=== PATIENT | male | born 1960 | race Caucasian/White ===

== ENCOUNTER 2020-05-13 02:16 | Inpatient (IN) ==
[2020-05-13] MEDS ORDERED: MIDAZOLAM 100 MG in SODIUM CHLORIDE 0.9% 80 ML IV PRN (04:01)
[2020-05-13 04:07] LABS: ABG Base Excess -2.6 MMOL/L (-2.5-2.5); ABG HCO3 22.2 MMOL/L (20-26); ABG Oxygen Saturation 97.6 % (95-100); ABG PH 7.337 (7.35-7.45); ABG TCO2 21.8 MMOL/L (23-27)
[2020-05-13] MEDS ORDERED: MIDAZOLAM 10 MG/2 ML VIAL ONE (04:10)
[2020-05-13] MEDS ORDERED: MIDAZOLAM 10 MG/2 ML VIAL IV ONE (04:10)
[2020-05-13] MEDS: MIDAZOLAM 100 MG in SODIUM CHLORIDE 0.9% 80 ML IV PRN ×2 (04:30→19:29)
[2020-05-13] MEDS ORDERED: NICOTINE 21 MG/24 HR PATCH TRANSDERM PRN (04:36)
[2020-05-13] MEDS ORDERED: ALBUTEROL 2.5 MG/3 ML NEB RESP TX PRN (04:36)
[2020-05-13] MEDS ORDERED: ONDANSETRON 4 MG/2 ML VIAL IV PRN (04:36)
[2020-05-13] MEDS ORDERED: MORPHINE 4 MG/1 ML VIAL IV PRN (04:36)
[2020-05-13 04:44] LABS: Basophils % 0.1 % (0.0-0.8); Eosinophils % 0.1 % (0.00-10.9); Hematocrit 23.5 VOL% (42.0-52.0); Hemoglobin 7.4 GM/DL (14.0-18.0); Immature Granulocytes % 1.9 %; Immature Granulocytes Absolute 0.31 #; Lymphocytes # 0.9 10*3/uL (1.4-4.0); Lymphocytes % 5.8 % (21.2-54.2); Mean Corpuscular HGB Conc 31.5 GM/DL (32-36); Mean Corpuscular Volume 100.9 FL (87-102); Mean Platelet Volume 10.5 FL (9.6-12.0); Monocytes % 3.9 % (1.7-12.7); Neutrophils % 88.2 % (38.7-73.9); Platelet Count 302 T/CUMM (130-400); Red Blood Count 2.33 MC/CUMM (3.8-5.5); Red Cell Distribution Width 13.7 % (9.3-17.3); White Blood Count 15.9 T/CUMM (4-12)
[2020-05-13 04:56] LABS: INR 1.1; PT Patient Result 11.8 SECS (9.8-11.9); Partial Thromboplastin Time 27.5 SECS (23.9-33.8)
[2020-05-13] MEDS ORDERED: SODIUM CHLORIDE 0.9% 1,000 ML IV PRN (04:58)
[2020-05-13 05:11] LABS: Alanine Aminotransferase 21 U/L (16-61); Albumin 2.1 G/DL (3.4-5.0); Alkaline Phosphatase 133 U/L (45-117); Amylase 98 U/L (25-115); Aspartate Amino Transferase 30 U/L (0-37); Bilirubin,Total < 0.39 MG/DL (0.2-1.0); Blood Urea Nitrogen 28 MG/DL (7-18); Calcium 6.9 MG/DL (8.5-10.1); Carbon Dioxide 23 MMOL/L (21-32); Estimated Glom Filtration Rate 22 ML/MIN; Glucose 124 MG/DL (74-106); Osmolality,Calculated 283.5 MOS/KG (273-304); Potassium 3.8 MMOL/L (3.5-5.1); Sodium 139 MMOL/L (136-145); Total Protein 5.5 G/DL (6.4-8.3)
[2020-05-13] MEDS: fentaNYL INJ 1,250 MCG in SODIUM CHLORIDE 0.9% 225 ML IV PRN (05:15)
[2020-05-13 05:27] LABS: Troponin I 0.233 NG/ML (0.00-0.045)
[2020-05-13] MEDS ORDERED: DEXTROSE 50% 25 GM/50 ML VIAL IV PRN (05:43)
[2020-05-13] MEDS ORDERED: GLUCAGON 1 MG VIAL IM PRN (05:43)
[2020-05-13] MEDS ORDERED: LORazepam 2 MG/1 ML VIAL ONE ×2 (06:41→17:10)
[2020-05-13] MEDS ORDERED: LORazepam 2 MG/1 ML VIAL IV ONE ×2 (06:43→07:47)
[2020-05-13] MEDS ORDERED: PHENobarbital 130 MG/1 ML VIAL IV ONE (07:51)
[2020-05-13] MEDS ORDERED: FOSPHENYTOIN 1,000 MG.PE in SODIUM CHLORIDE 0.9% 250 ML IV ONE (08:00)
[2020-05-13 08:59] LABS: Bilirubin,Urine Negative (Negative); Blood, Urine Negative (Negative); Glucose,Urine (UA) Negative (Negative); Ketones,Urine Negative (Negative); Mucus,Urine Occasional /LPF (Occasional); Nitrite,Urine Negative (Negative); Protein,Urine >=500 MG/DL; RBC,Urine 5 /HPF (0-4); Urine Appearance CLEAR (Clear); Urine Color Yellow (Yellow); Urine Specific Gravity 1.034 (1.001-1.035); Urine Urobilinogen < 2.0 EU/DL (0.2-1.0); WBC,Urine 2 /HPF (0-6)
[2020-05-13] MEDS: PANTOPRAZOLE 40 MG VIAL IV SCH (09:09)
[2020-05-13] MEDS: cefTRIAXone 1,000 MG in SYRINGE 1 EACH IV SCH (10:59)
[2020-05-13] MEDS: AZITHROMYCIN INJ 250 MG in SODIUM CHLORIDE 0.9% 250 ML IV SCH (13:30)
[2020-05-13] MEDS: PHENobarbital 130 MG/1 ML VIAL IV SCH (16:50)
[2020-05-13] MEDS: LORazepam 2 MG/1 ML VIAL IV PRN (17:20)
[2020-05-13 17:32] LABS: Hemoglobin 7.6 GM/DL (14.0-18.0)
[2020-05-13] MEDS: DEXAMETHASONE 4 MG/1 ML VIAL IV SCH (20:05)
[2020-05-13] MEDS: LACOSAMIDE INJ 200 MG in SODIUM CHLORIDE 0.9% 50 ML IV SCH (20:05)
[2020-05-13] MEDS: ENOXAPARIN 30 MG/0.3 ML SYRINGE SUBCUT SCH (20:17)
[2020-05-13 23:28] LABS: Hematocrit 28.3 VOL% (42.0-52.0)
[2020-05-13 23:31] LABS: Hemoglobin 8.8 GM/DL (14.0-18.0)
[2020-05-14] MEDS: LORazepam 2 MG/1 ML VIAL IV PRN (00:15)
[2020-05-14] MEDS: PHENobarbital 130 MG/1 ML VIAL IV SCH ×3 (00:24→17:30)
[2020-05-14] MEDS: DEXAMETHASONE 4 MG/1 ML VIAL IV SCH ×4 (02:45→19:30)
[2020-05-14 03:50] LABS: ABG Base Excess -3.6 MMOL/L (-2.5-2.5); ABG HCO3 21.5 MMOL/L (20-26); ABG Oxygen Saturation 99.9 % (95-100); ABG PCO2 31.4 MM HG (35-48); ABG PH 7.417 (7.35-7.45); ABG TCO2 18.5 MMOL/L (23-27)
[2020-05-14 04:11] LABS: Basophils % 0.1 % (0.0-0.8); Hematocrit 28.8 VOL% (42.0-52.0); Immature Granulocytes % 0.6 %; Immature Granulocytes Absolute 0.06 #; Lymphocytes % 9.6 % (21.2-54.2); Mean Corpuscular Volume 94.4 FL (87-102); Mean Platelet Volume 11.1 FL (9.6-12.0); Monocytes % 3.2 % (1.7-12.7); Neutrophils % 86.5 % (38.7-73.9); Platelet Count 277 T/CUMM (130-400); Red Cell Distribution Width 16.7 % (9.3-17.3); White Blood Count 9.9 T/CUMM (4-12)
[2020-05-14 04:21] LABS: Hemoglobin 9.5 GM/DL (14.0-18.0); Red Blood Count 3.05 MC/CUMM (3.8-5.5)
[2020-05-14 04:34] LABS: Osmolality,Calculated 288.3 MOS/KG (273-304); Potassium 3.8 MMOL/L (3.5-5.1)
[2020-05-14] MEDS: fentaNYL INJ 1,250 MCG in SODIUM CHLORIDE 0.9% 225 ML IV PRN (07:00)
[2020-05-14] MEDS: MIDAZOLAM 100 MG in SODIUM CHLORIDE 0.9% 80 ML IV PRN (07:32)
[2020-05-14] MEDS: PANTOPRAZOLE 40 MG VIAL IV SCH (08:16)
[2020-05-14] MEDS: LACOSAMIDE INJ 200 MG in SODIUM CHLORIDE 0.9% 50 ML IV SCH ×2 (08:59→19:48)
[2020-05-14] MEDS ORDERED: SODIUM BICARBONATE 50 MEQ/50 ML VIAL IV ONE (09:21)
[2020-05-14] MEDS: cefTRIAXone 1,000 MG in SYRINGE 1 EACH IV SCH (11:24)
[2020-05-14] MEDS: AZITHROMYCIN INJ 250 MG in SODIUM CHLORIDE 0.9% 250 ML IV SCH (11:33)
[2020-05-14] MEDS: ENOXAPARIN 30 MG/0.3 ML SYRINGE SUBCUT SCH (21:37)
[2020-05-15] MEDS: PHENobarbital 130 MG/1 ML VIAL IV SCH ×3 (00:16→17:36)
[2020-05-15] MEDS: DEXAMETHASONE 4 MG/1 ML VIAL IV SCH ×3 (02:15→15:52)
[2020-05-15 04:33] LABS: ABG Base Excess -7.2 MMOL/L (-2.5-2.5); ABG HCO3 17.5 MMOL/L (20-26); ABG Oxygen Saturation 98.6 % (95-100); ABG PCO2 32.2 MM HG (35-48); ABG PH 7.353 (7.35-7.45); ABG PO2 168.5 MM HG (80-95); ABG TCO2 18.5 MMOL/L (23-27)
[2020-05-15 04:41] LABS: Basophils % 0.1 % (0.0-0.8); Hematocrit 29.9 VOL% (42.0-52.0); Hemoglobin 9.4 GM/DL (14.0-18.0); Immature Granulocytes % 0.6 %; Immature Granulocytes Absolute 0.06 #; Lymphocytes # 0.7 10*3/uL (1.4-4.0); Lymphocytes % 6.4 % (21.2-54.2); Mean Corpuscular HGB Conc 31.4 GM/DL (32-36); Mean Corpuscular Volume 96.8 FL (87-102); Mean Platelet Volume 10.9 FL (9.6-12.0); Monocytes % 2.2 % (1.7-12.7); Neutrophils % 90.7 % (38.7-73.9); Platelet Count 258 T/CUMM (130-400); Red Blood Count 3.09 MC/CUMM (3.8-5.5); Red Cell Distribution Width 16.6 % (9.3-17.3); White Blood Count 10.2 T/CUMM (4-12)
[2020-05-15 04:58] LABS: Calcium 7.7 MG/DL (8.5-10.1); Osmolality,Calculated 289.5 MOS/KG (273-304); Potassium 4.1 MMOL/L (3.5-5.1)
[2020-05-15 05:06] LABS: Lymphocytes 4 % (20-55); Platelet Estimate Normal; Segmented Neutrophils 93 % (50-85); Total Cells Counted 100
[2020-05-15 05:07] LABS: Hypochromasia Slight
[2020-05-15] MEDS: PANTOPRAZOLE 40 MG VIAL IV SCH (09:49)
[2020-05-15] MEDS: LACOSAMIDE INJ 200 MG in SODIUM CHLORIDE 0.9% 50 ML IV SCH (09:49)
[2020-05-15] MEDS: ASPIRIN CHEW 81 MG TABLET PO SCH (10:10)
[2020-05-15] MEDS: cefTRIAXone 1,000 MG in SYRINGE 1 EACH IV SCH (10:34)
[2020-05-15] MEDS: AZITHROMYCIN INJ 250 MG in SODIUM CHLORIDE 0.9% 250 ML IV SCH (12:15)
[2020-05-15] MEDS: HEPARIN 5,000 UNIT/1 ML VIAL SUBCUT SCH (13:12)
[2020-05-15] MEDS ORDERED: HEPARIN 10,000 UNIT/10 ML VIAL IV SCH (16:45)
[2020-05-15] MEDS ORDERED: PHENYTOIN INJ 1,000 MG in SODIUM CHLORIDE 0.9% 100 ML IV ONE (17:18)
[2020-05-15] MEDS: MIDAZOLAM 100 MG in SODIUM CHLORIDE 0.9% 80 ML IV PRN (19:31)
[2020-05-16] MEDS ORDERED: VALPROIC ACID INJ 500 MG in SODIUM CHLORIDE 0.9% 100 ML IV SCH
[2020-05-16] MEDS: HEPARIN 5,000 UNIT/1 ML VIAL SUBCUT SCH ×2 (00:25→14:32)
[2020-05-16] MEDS: DEXAMETHASONE 4 MG/1 ML VIAL IV SCH ×3 (00:25→21:59)
[2020-05-16] MEDS: PHENYTOIN 100 MG/2 ML VIAL IV SCH ×3 (00:28→18:30)
[2020-05-16] MEDS: PHENobarbital 130 MG/1 ML VIAL IV SCH ×4 (01:14→18:30)
[2020-05-16] MEDS: fentaNYL INJ 1,250 MCG in SODIUM CHLORIDE 0.9% 225 ML IV PRN (02:21)
[2020-05-16 04:33] LABS: ABG Base Excess 0.3 MMOL/L (-2.5-2.5); ABG HCO3 24.7 MMOL/L (20-26); ABG Oxygen Saturation 99.4 % (95-100); ABG PCO2 36.9 MM HG (35-48); ABG PH 7.428 (7.35-7.45); ABG TCO2 22.2 MMOL/L (23-27)
[2020-05-16 04:40] LABS: Basophils % 0.1 % (0.0-0.8); Hematocrit 28.5 VOL% (42.0-52.0); Hemoglobin 9.6 GM/DL (14.0-18.0); Immature Granulocytes % 0.5 %; Immature Granulocytes Absolute 0.04 #; Lymphocytes # 0.7 10*3/uL (1.4-4.0); Lymphocytes % 8.1 % (21.2-54.2); Mean Corpuscular HGB Conc 33.7 GM/DL (32-36); Mean Corpuscular Volume 93.1 FL (87-102); Mean Platelet Volume 11.1 FL (9.6-12.0); Monocytes % 4.5 % (1.7-12.7); Neutrophils % 86.8 % (38.7-73.9); Platelet Count 246 T/CUMM (130-400); Red Blood Count 3.06 MC/CUMM (3.8-5.5); Red Cell Distribution Width 16.1 % (9.3-17.3); White Blood Count 8.9 T/CUMM (4-12)
[2020-05-16 04:58] LABS: Calcium 7.5 MG/DL (8.5-10.1); Osmolality,Calculated 281.8 MOS/KG (273-304); Potassium 3.7 MMOL/L (3.5-5.1)
[2020-05-16] MEDS: ASPIRIN CHEW 81 MG TABLET PO SCH (09:05)
[2020-05-16] MEDS: PANTOPRAZOLE 40 MG VIAL IV SCH (09:05)
[2020-05-16] MEDS: cefTRIAXone 1,000 MG in SYRINGE 1 EACH IV SCH (09:30)
[2020-05-16] MEDS: MIDAZOLAM 100 MG in SODIUM CHLORIDE 0.9% 80 ML IV PRN (14:13)
[2020-05-16] MEDS: AZITHROMYCIN INJ 250 MG in SODIUM CHLORIDE 0.9% 250 ML IV SCH (14:32)
[2020-05-16] MEDS ORDERED: LORazepam 2 MG/1 ML VIAL IV ONE (15:51)
[2020-05-16] MEDS ORDERED: VALPROIC ACID INJ 1,000 MG in SODIUM CHLORIDE 0.9% 100 ML IV ONE (16:00)
[2020-05-17] MEDS: hydrALAZINE 20 MG/1 ML VIAL IV PRN ×3 (00:08→12:52)
[2020-05-17] MEDS: PHENYTOIN 100 MG/2 ML VIAL IV SCH ×3 (00:12→18:00)
[2020-05-17] MEDS: HEPARIN 5,000 UNIT/1 ML VIAL SUBCUT SCH ×2 (00:14→12:52)
[2020-05-17] MEDS: VALPROIC ACID INJ 500 MG in SODIUM CHLORIDE 0.9% 100 ML IV SCH ×2 (00:22→10:00)
[2020-05-17] MEDS: PHENobarbital 130 MG/1 ML VIAL IV SCH ×3 (00:30→18:00)
[2020-05-17 05:10] LABS: Basophils % 0.1 % (0.0-0.8); Eosinophils % 0.1 % (0.00-10.9); Hematocrit 31.4 VOL% (42.0-52.0); Hemoglobin 10.3 GM/DL (14.0-18.0); Immature Granulocytes % 0.5 %; Immature Granulocytes Absolute 0.05 #; Lymphocytes # 1.5 10*3/uL (1.4-4.0); Lymphocytes % 14.7 % (21.2-54.2); Mean Corpuscular HGB Conc 32.8 GM/DL (32-36); Mean Corpuscular Volume 95.2 FL (87-102); Mean Platelet Volume 10.7 FL (9.6-12.0); Monocytes % 5.3 % (1.7-12.7); Neutrophils % 79.3 % (38.7-73.9); Platelet Count 245 T/CUMM (130-400); Red Cell Distribution Width 15.9 % (9.3-17.3); White Blood Count 10.1 T/CUMM (4-12)
[2020-05-17 05:11] LABS: ABG Base Excess -1.8 MMOL/L (-2.5-2.5); ABG HCO3 22.4 MMOL/L (20-26); ABG Oxygen Saturation 97.5 % (95-100); ABG PCO2 36.1 MM HG (35-48); ABG PH 7.411 (7.35-7.45); ABG PO2 104.6 MM HG (80-95); ABG TCO2 23.5 MMOL/L (23-27)
[2020-05-17 05:36] LABS: Calcium 7.3 MG/DL (8.5-10.1); Osmolality,Calculated 287.7 MOS/KG (273-304); Potassium 3.9 MMOL/L (3.5-5.1)
[2020-05-17] MEDS: LORazepam 2 MG/1 ML VIAL IV PRN ×4 (06:18→10:54)
[2020-05-17] MEDS: MIDAZOLAM 100 MG in SODIUM CHLORIDE 0.9% 80 ML IV PRN ×2 (06:56→23:10)
[2020-05-17] MEDS: ASPIRIN CHEW 81 MG TABLET PO SCH (09:00)
[2020-05-17] MEDS: DEXAMETHASONE 4 MG/1 ML VIAL IV SCH ×2 (09:00→20:58)
[2020-05-17] MEDS: PANTOPRAZOLE 40 MG VIAL IV SCH (09:00)
[2020-05-17] MEDS: cefTRIAXone 1,000 MG in SYRINGE 1 EACH IV SCH (09:55)
[2020-05-17] MEDS: AZITHROMYCIN INJ 250 MG in SODIUM CHLORIDE 0.9% 250 ML IV SCH (11:57)
[2020-05-17] MEDS: VALPROIC ACID INJ 750 MG in SODIUM CHLORIDE 0.9% 100 ML IV SCH ×2 (12:18→21:08)
[2020-05-17] MEDS ORDERED: KETAMINE 500 MG/10 ML VIAL IV ONE ×2 (13:05→14:00)
[2020-05-17] MEDS: SODIUM CHLORIDE 0.9% IV SCH ×2 (14:02→22:52)
[2020-05-17] MEDS: KETAMINE IV SCH ×2 (14:02→22:52)
[2020-05-18] MEDS: PHENobarbital 130 MG/1 ML VIAL IV SCH ×3 (00:48→17:33)
[2020-05-18] MEDS: HEPARIN 5,000 UNIT/1 ML VIAL SUBCUT SCH ×2 (00:48→11:15)
[2020-05-18] MEDS: PHENYTOIN 100 MG/2 ML VIAL IV SCH ×3 (00:48→17:32)
[2020-05-18] MEDS ORDERED: NOREPINEPHRINE 4 MG/4 ML VIAL IV ONE (01:29)
[2020-05-18] MEDS: NOREPINEPHRINE 8 MG in SODIUM CHLORIDE 0.9% 242 ML IV PRN (01:40)
[2020-05-18 04:28] LABS: ABG Base Excess -0.7 MMOL/L (-2.5-2.5); ABG HCO3 23.8 MMOL/L (20-26); ABG Oxygen Saturation 95.7 % (95-100); ABG PCO2 40.9 MM HG (35-48); ABG PH 7.382 (7.35-7.45); ABG PO2 79.2 MM HG (80-95); ABG TCO2 22.2 MMOL/L (23-27)
[2020-05-18] MEDS: VALPROIC ACID INJ 750 MG in SODIUM CHLORIDE 0.9% 100 ML IV SCH ×3 (04:51→21:15)
[2020-05-18 04:57] LABS: Basophils % 0.1 % (0.0-0.8); Calcium 7.2 MG/DL (8.5-10.1); Eosinophils # 0.1 10*3/uL (0.0-0.87); Eosinophils % 0.3 % (0.00-10.9); Hematocrit 28.7 VOL% (42.0-52.0); Hemoglobin 9.6 GM/DL (14.0-18.0); Immature Granulocytes % 0.5 %; Lymphocytes # 1.9 10*3/uL (1.4-4.0); Lymphocytes % 10.3 % (21.2-54.2); Mean Corpuscular HGB Conc 33.4 GM/DL (32-36); Mean Corpuscular Volume 94.1 FL (87-102); Mean Platelet Volume 11.2 FL (9.6-12.0); Monocytes % 6.1 % (1.7-12.7); Neutrophils % 82.7 % (38.7-73.9); Osmolality,Calculated 284.5 MOS/KG (273-304); Platelet Count 228 T/CUMM (130-400); Potassium 4.1 MMOL/L (3.5-5.1); Red Blood Count 3.05 MC/CUMM (3.8-5.5); Red Cell Distribution Width 15.9 % (9.3-17.3); White Blood Count 18.4 T/CUMM (4-12)
[2020-05-18] MEDS: KETAMINE IV SCH ×3 (07:50→23:16)
[2020-05-18] MEDS: SODIUM CHLORIDE 0.9% IV SCH ×3 (07:50→23:16)
[2020-05-18] MEDS: ASPIRIN CHEW 81 MG TABLET PO SCH (09:06)
[2020-05-18] MEDS: DEXAMETHASONE 4 MG/1 ML VIAL IV SCH ×2 (09:07→21:15)
[2020-05-18] MEDS: PANTOPRAZOLE 40 MG VIAL IV SCH (09:08)
[2020-05-18] MEDS: cefTRIAXone 1,000 MG in SYRINGE 1 EACH IV SCH (10:09)
[2020-05-18] MEDS: AZITHROMYCIN INJ 250 MG in SODIUM CHLORIDE 0.9% 250 ML IV SCH (12:43)
[2020-05-18] MEDS: PIPERACILLIN/TAZOBACTAM 3,375 MG in SODIUM CHLORIDE 0.9% 100 ML IV SCH (13:15)
[2020-05-18 17:50] LABS: Glucose,CSF 72 MG/DL (40-70)
[2020-05-18] MEDS: LORazepam 2 MG/1 ML VIAL IV PRN ×3 (17:53→20:02)
[2020-05-18 18:20] LABS: Phenytoin (Dilantin) 9.6 UG/ML (10-20)
[2020-05-18 19:00] LABS: Lymphocytes,CSF 100 %
[2020-05-18 19:01] LABS: Appearance,CSF Clear; Red Blood Cell,CSF 3 C/CUMM; White Blood Cell,CSF < 1 C/CUMM
[2020-05-18] MEDS: MIDAZOLAM 100 MG in SODIUM CHLORIDE 0.9% 80 ML IV PRN (20:10)
[2020-05-19] MEDS: HEPARIN 5,000 UNIT/1 ML VIAL SUBCUT SCH ×2 (00:32→12:24)
[2020-05-19] MEDS: PHENYTOIN 100 MG/2 ML VIAL IV SCH ×3 (00:32→20:45)
[2020-05-19] MEDS: PIPERACILLIN/TAZOBACTAM 3,375 MG in SODIUM CHLORIDE 0.9% 100 ML IV SCH ×2 (00:55→12:47)
[2020-05-19] MEDS: PHENobarbital 130 MG/1 ML VIAL IV SCH ×3 (00:56→17:54)
[2020-05-19] MEDS: NOREPINEPHRINE 8 MG in SODIUM CHLORIDE 0.9% 242 ML IV PRN (03:28)
[2020-05-19] MEDS: VALPROIC ACID INJ 750 MG in SODIUM CHLORIDE 0.9% 100 ML IV SCH ×2 (04:20→12:42)
[2020-05-19 04:58] LABS: ABG Base Excess -5.8 MMOL/L (-2.5-2.5); ABG HCO3 20.1 MMOL/L (20-26); ABG PCO2 41.3 MM HG (35-48); ABG PH 7.306 (7.35-7.45); ABG PO2 219.5 MM HG (80-95); ABG TCO2 21.4 MMOL/L (23-27)
[2020-05-19 04:59] LABS: Basophils % 0.1 % (0.0-0.8); Eosinophils # 0.1 10*3/uL (0.0-0.87); Eosinophils % 0.5 % (0.00-10.9); Hematocrit 27.8 VOL% (42.0-52.0); Hemoglobin 8.8 GM/DL (14.0-18.0); Immature Granulocytes % 0.7 %; Immature Granulocytes Absolute 0.12 #; Lymphocytes # 1.4 10*3/uL (1.4-4.0); Lymphocytes % 8.8 % (21.2-54.2); Mean Corpuscular HGB Conc 31.7 GM/DL (32-36); Mean Corpuscular Volume 97.9 FL (87-102); Mean Platelet Volume 11.4 FL (9.6-12.0); Monocytes % 3.3 % (1.7-12.7); Neutrophils % 86.6 % (38.7-73.9); Platelet Count 208 T/CUMM (130-400); Red Blood Count 2.84 MC/CUMM (3.8-5.5); Red Cell Distribution Width 15.9 % (9.3-17.3); White Blood Count 16.3 T/CUMM (4-12)
[2020-05-19 05:23] LABS: Calcium 7.2 MG/DL (8.5-10.1); Osmolality,Calculated 292.5 MOS/KG (273-304); Potassium 4.5 MMOL/L (3.5-5.1)
[2020-05-19] MEDS: KETAMINE IV SCH ×3 (06:12→22:03)
[2020-05-19] MEDS: SODIUM CHLORIDE 0.9% IV SCH ×3 (06:12→22:03)
[2020-05-19] MEDS: DEXAMETHASONE 4 MG/1 ML VIAL IV SCH ×2 (09:48→20:45)
[2020-05-19] MEDS: ASPIRIN CHEW 81 MG TABLET PO SCH (09:48)
[2020-05-19] MEDS: PANTOPRAZOLE 40 MG VIAL IV SCH (09:54)
[2020-05-19] MEDS: MIDAZOLAM 100 MG in SODIUM CHLORIDE 0.9% 80 ML IV PRN (12:50)
[2020-05-19] MEDS ORDERED: PHENYTOIN INJ 1,000 MG in SODIUM CHLORIDE 0.9% 100 ML IV ONE (15:09)
[2020-05-19] MEDS: VALPROIC ACID INJ 1,000 MG in SODIUM CHLORIDE 0.9% 100 ML IV SCH (16:28)
[2020-05-20] MEDS: PIPERACILLIN/TAZOBACTAM 3,375 MG in SODIUM CHLORIDE 0.9% 100 ML IV SCH ×2 (00:37→13:04)
[2020-05-20] MEDS: VALPROIC ACID INJ 1,000 MG in SODIUM CHLORIDE 0.9% 100 ML IV SCH ×2 (00:37→08:51)
[2020-05-20] MEDS: PHENobarbital 130 MG/1 ML VIAL IV SCH ×3 (00:37→17:25)
[2020-05-20] MEDS: HEPARIN 5,000 UNIT/1 ML VIAL SUBCUT SCH ×2 (00:37→12:35)
[2020-05-20] MEDS: ACETAMINOPHEN 325 MG/10.15 ML UDCUP PO PRN ×3 (03:23→22:04)
[2020-05-20] MEDS: PHENYTOIN 100 MG/2 ML VIAL IV SCH ×4 (03:24→21:20)
[2020-05-20 05:05] LABS: ABG Base Excess -2.2 MMOL/L (-2.5-2.5); ABG HCO3 22.5 MMOL/L (20-26); ABG Oxygen Saturation 95.9 % (95-100); ABG PCO2 40.8 MM HG (35-48); ABG PH 7.359 (7.35-7.45); ABG PO2 82.6 MM HG (80-95); ABG TCO2 21.3 MMOL/L (23-27)
[2020-05-20 05:42] LABS: Basophils % 0.1 % (0.0-0.8); Eosinophils # 0.1 10*3/uL (0.0-0.87); Eosinophils % 0.5 % (0.00-10.9); Hematocrit 26.2 VOL% (42.0-52.0); Hemoglobin 8.5 GM/DL (14.0-18.0); Immature Granulocytes % 1.1 %; Immature Granulocytes Absolute 0.13 #; Lymphocytes # 1.5 10*3/uL (1.4-4.0); Lymphocytes % 12.1 % (21.2-54.2); Mean Corpuscular HGB Conc 32.4 GM/DL (32-36); Monocytes % 5.7 % (1.7-12.7); Neutrophils % 80.5 % (38.7-73.9); Platelet Count 198 T/CUMM (130-400); Red Blood Count 2.73 MC/CUMM (3.8-5.5); Red Cell Distribution Width 15.8 % (9.3-17.3); White Blood Count 12.3 T/CUMM (4-12)
[2020-05-20 05:50] LABS: Alanine Aminotransferase 9 U/L (16-61); Albumin 1.3 G/DL (3.4-5.0); Alkaline Phosphatase 72 U/L (45-117); Aspartate Amino Transferase 22 U/L (0-37); Bilirubin,Total < 0.39 MG/DL (0.2-1.0); Blood Urea Nitrogen 40 MG/DL (7-18); Calcium 7.3 MG/DL (8.5-10.1); Carbon Dioxide 24 MMOL/L (21-32); Estimated Glom Filtration Rate 25 ML/MIN; Glucose 93 MG/DL (74-106); Osmolality,Calculated 284.7 MOS/KG (273-304); Potassium 3.8 MMOL/L (3.5-5.1); Sodium 138 MMOL/L (136-145); Total Protein 4.7 G/DL (6.4-8.3)
[2020-05-20] MEDS: MIDAZOLAM 100 MG in SODIUM CHLORIDE 0.9% 80 ML IV PRN (05:50)
[2020-05-20] MEDS: KETAMINE IV SCH ×3 (06:08→21:30)
[2020-05-20] MEDS: SODIUM CHLORIDE 0.9% IV SCH ×4 (06:08→21:30)
[2020-05-20] MEDS: ASPIRIN CHEW 81 MG TABLET PO SCH (09:12)
[2020-05-20] MEDS: DEXAMETHASONE 4 MG/1 ML VIAL IV SCH ×2 (09:12→20:21)
[2020-05-20] MEDS: PANTOPRAZOLE 40 MG VIAL IV SCH (09:19)
[2020-05-20] MEDS ORDERED: IN SODIUM CHLORIDE 0.9% IV ONE (10:00)
[2020-05-20] MEDS: NOREPINEPHRINE 8 MG in SODIUM CHLORIDE 0.9% 242 ML IV PRN ×2 (10:21→21:44)
[2020-05-20 11:50] LABS: VDRL Spinal Fluid Negative (Negative)
[2020-05-20] MEDS ORDERED: VANCOMYCIN INJ 1,750 MG in SODIUM CHLORIDE 0.9% 500 ML IV ONE (12:00)
[2020-05-20] MEDS: IN SODIUM CHLORIDE 0.9% IV SCH (12:55)
[2020-05-20] MEDS: VALPROIC ACID IV SCH (16:04)
[2020-05-21] MEDS: MIDAZOLAM 100 MG in SODIUM CHLORIDE 0.9% 80 ML IV PRN ×2 (00:34→15:39)
[2020-05-21] MEDS: VALPROIC ACID IV SCH ×3 (00:45→16:40)
[2020-05-21] MEDS: HEPARIN 5,000 UNIT/1 ML VIAL SUBCUT SCH ×2 (00:45→12:07)
[2020-05-21] MEDS: SODIUM CHLORIDE 0.9% IV SCH ×6 (00:45→21:34)
[2020-05-21] MEDS: PHENobarbital 130 MG/1 ML VIAL IV SCH ×3 (00:46→17:35)
[2020-05-21] MEDS: PIPERACILLIN/TAZOBACTAM 3,375 MG in SODIUM CHLORIDE 0.9% 100 ML IV SCH ×2 (00:46→12:21)
[2020-05-21] MEDS: PHENYTOIN 100 MG/2 ML VIAL IV SCH ×4 (03:31→20:15)
[2020-05-21 04:12] LABS: ABG Base Excess -9.8 MMOL/L (-2.5-2.5); ABG HCO3 16.5 MMOL/L (20-26); ABG Oxygen Saturation 95.2 % (95-100); ABG PH 7.259 (7.35-7.45); ABG PO2 84.1 MM HG (80-95); ABG TCO2 15.5 MMOL/L (23-27)
[2020-05-21 04:18] LABS: Basophils % 0.2 % (0.0-0.8); Eosinophils % 0.2 % (0.00-10.9); Hematocrit 28.5 VOL% (42.0-52.0); Hemoglobin 9.2 GM/DL (14.0-18.0); Immature Granulocytes % 1.6 %; Lymphocytes # 1.2 10*3/uL (1.4-4.0); Lymphocytes % 9.7 % (21.2-54.2); Mean Corpuscular HGB Conc 32.3 GM/DL (32-36); Mean Corpuscular Volume 95.6 FL (87-102); Mean Platelet Volume 11.8 FL (9.6-12.0); Monocytes % 6.5 % (1.7-12.7); Neutrophils % 81.8 % (38.7-73.9); Platelet Count 229 T/CUMM (130-400); Red Blood Count 2.98 MC/CUMM (3.8-5.5); Red Cell Distribution Width 16.1 % (9.3-17.3); White Blood Count 12.6 T/CUMM (4-12)
[2020-05-21 04:52] LABS: Albumin 1.2 G/DL (3.4-5.0); Calcium 7.4 MG/DL (8.5-10.1); Osmolality,Calculated 293.8 MOS/KG (273-304); Potassium 4.6 MMOL/L (3.5-5.1); Total Protein 4.9 G/DL (6.4-8.3)
[2020-05-21 05:42] LABS: Phenytoin (Dilantin) 17.8 UG/ML (10-20)
[2020-05-21 05:45] LABS: ABG Base Excess -10.1 MMOL/L (-2.5-2.5); ABG HCO3 15.8 MMOL/L (20-26); ABG PCO2 34.9 MM HG (35-48); ABG PH 7.274 (7.35-7.45); ABG PO2 82.4 MM HG (80-95); ABG TCO2 16.9 MMOL/L (23-27)
[2020-05-21] MEDS: KETAMINE IV SCH ×3 (06:00→21:34)
[2020-05-21] MEDS: NOREPINEPHRINE 8 MG in SODIUM CHLORIDE 0.9% 242 ML IV PRN ×2 (07:44→15:36)
[2020-05-21] MEDS: ASPIRIN CHEW 81 MG TABLET PO SCH (09:17)
[2020-05-21] MEDS: DEXAMETHASONE 4 MG/1 ML VIAL IV SCH ×2 (09:18→20:15)
[2020-05-21] MEDS: PANTOPRAZOLE 40 MG VIAL IV SCH (09:22)
[2020-05-21] MEDS ORDERED: SODIUM BICARBONATE 50 MEQ/50 ML VIAL IV ONE (09:26)
[2020-05-21] MEDS: DOPamine 800 MG/250 ML PREMIX IV PRN (09:37)
[2020-05-21 11:01] LABS: Bacteria,Urine Few /HPF (Few); Bilirubin,Urine Negative (Negative); Blood, Urine Negative (Negative); Glucose,Urine (UA) Negative (Negative); Ketones,Urine Negative (Negative); Mucus,Urine Occasional /LPF (Occasional); Nitrite,Urine Negative (Negative); Protein,Urine 100 MG/DL; RBC,Urine 2 /HPF (0-4); Squamous Epithelial Cell,Urine Occasional /HPF (0-10); Urine Appearance CLEAR (Clear); Urine Color Yellow (Yellow); Urine Specific Gravity 1.017 (1.001-1.035); Urine Urobilinogen < 2.0 EU/DL (0.2-1.0); WBC,Urine 1 /HPF (0-6)
[2020-05-21 12:42] LABS: Calcium 7.2 MG/DL (8.5-10.1); Osmolality,Calculated 298.7 MOS/KG (273-304); Potassium 4.4 MMOL/L (3.5-5.1)
[2020-05-21] MEDS ORDERED: VANCOMYCIN INJ 750 MG in SODIUM CHLORIDE 0.9% 250 ML IV PRN (17:00)
[2020-05-22] MEDS: HEPARIN 5,000 UNIT/1 ML VIAL SUBCUT SCH ×2 (00:44→12:55)
[2020-05-22] MEDS: PIPERACILLIN/TAZOBACTAM 3,375 MG in SODIUM CHLORIDE 0.9% 100 ML IV SCH ×2 (00:44→12:55)
[2020-05-22] MEDS: VALPROIC ACID IV SCH ×3 (00:44→16:40)
[2020-05-22] MEDS: SODIUM CHLORIDE 0.9% IV SCH ×6 (00:44→22:21)
[2020-05-22] MEDS: PHENobarbital 130 MG/1 ML VIAL IV SCH ×3 (00:44→18:40)
[2020-05-22] MEDS: DOPamine 800 MG/250 ML PREMIX IV PRN ×2 (01:18→16:45)
[2020-05-22] MEDS: NOREPINEPHRINE 8 MG in SODIUM CHLORIDE 0.9% 242 ML IV PRN ×2 (01:34→09:09)
[2020-05-22] MEDS: PHENYTOIN 100 MG/2 ML VIAL IV SCH ×4 (03:45→20:59)
[2020-05-22 04:46] LABS: ABG HCO3 14.9 MMOL/L (20-26); ABG PCO2 38.4 MM HG (35-48); ABG PO2 75.8 MM HG (80-95); ABG TCO2 14.4 MMOL/L (23-27)
[2020-05-22 04:48] LABS: ABG PH 7.209 (7.35-7.45)
[2020-05-22] MEDS ORDERED: SODIUM BICARBONATE 50 MEQ/50 ML VIAL IV ONE (04:54)
[2020-05-22 04:57] LABS: Basophils % 0.3 % (0.0-0.8); Hematocrit 29.9 VOL% (42.0-52.0); Hemoglobin 9.5 GM/DL (14.0-18.0); Immature Granulocytes Absolute 0.24 #; Lymphocytes # 1.1 10*3/uL (1.4-4.0); Mean Corpuscular HGB Conc 31.8 GM/DL (32-36); Mean Corpuscular Volume 96.5 FL (87-102); Monocytes % 6.7 % (1.7-12.7); Platelet Count 215 T/CUMM (130-400); Red Cell Distribution Width 15.9 % (9.3-17.3)
[2020-05-22 05:12] LABS: Albumin 1.2 G/DL (3.4-5.0); Bilirubin,Total 0.4 MG/DL (0.2-1.0); Calcium 7.1 MG/DL (8.5-10.1); Osmolality,Calculated 304.7 MOS/KG (273-304); Potassium 5.3 MMOL/L (3.5-5.1)
[2020-05-22] MEDS: KETAMINE IV SCH ×3 (05:48→22:21)
[2020-05-22 07:56] LABS: M. Tuberculosis PCR Result Negative (Negative); M. Tuberculosis PCR Source CSF
[2020-05-22] MEDS: MIDAZOLAM 100 MG in SODIUM CHLORIDE 0.9% 80 ML IV PRN (08:00)
[2020-05-22] MEDS: ASPIRIN CHEW 81 MG TABLET PO SCH (09:55)
[2020-05-22] MEDS: DEXAMETHASONE 4 MG/1 ML VIAL IV SCH ×2 (09:56→20:59)
[2020-05-22] MEDS: PANTOPRAZOLE 40 MG VIAL IV SCH (09:57)
[2020-05-22] MEDS: SODIUM BICARBONATE 650 MG TABLET PO SCH ×3 (09:57→20:59)
[2020-05-22 12:21] LABS: West Nile Virus Ab, IgG, CSF Negative (Negative); West Nile Virus Ab, IgM, CSF Negative (Negative)
[2020-05-22] MEDS: ACETAMINOPHEN 325 MG/10.15 ML UDCUP PO PRN (14:30)
[2020-05-22] MEDS: NOREPINEPHRINE 16 MG in SODIUM CHLORIDE 0.9% 234 ML IV PRN (16:30)
[2020-05-22 16:59] LABS: Hepatitis B Surface Ag Quant < 0.10 Index; Hepatitis B Surface Ag Result Non-Reactive (NonReactive)
[2020-05-22] MEDS ORDERED: VANCOMYCIN INJ 750 MG in SODIUM CHLORIDE 0.9% 250 ML IV ONE (17:00)
[2020-05-23] MEDS: HEPARIN 5,000 UNIT/1 ML VIAL SUBCUT SCH ×2 (00:59→11:52)
[2020-05-23] MEDS: VALPROIC ACID IV SCH ×3 (00:59→15:55)
[2020-05-23] MEDS: SODIUM CHLORIDE 0.9% IV SCH ×5 (00:59→15:55)
[2020-05-23] MEDS: PHENobarbital 130 MG/1 ML VIAL IV SCH ×4 (01:00→23:50)
[2020-05-23] MEDS: PIPERACILLIN/TAZOBACTAM 3,375 MG in SODIUM CHLORIDE 0.9% 100 ML IV SCH ×2 (01:00→12:00)
[2020-05-23] MEDS: PHENYTOIN 100 MG/2 ML VIAL IV SCH ×4 (03:45→20:42)
[2020-05-23 04:43] LABS: ABG Base Excess -7.3 MMOL/L (-2.5-2.5); ABG HCO3 18.6 MMOL/L (20-26); ABG Oxygen Saturation 97.1 % (95-100); ABG PCO2 33.9 MM HG (35-48); ABG PH 7.329 (7.35-7.45); ABG TCO2 15.7 MMOL/L (23-27)
[2020-05-23 05:06] LABS: Albumin 1.2 G/DL (3.4-5.0); Potassium 3.8 MMOL/L (3.5-5.1); Total Protein 4.9 G/DL (6.4-8.3)
[2020-05-23 05:08] LABS: Basophils # 0.1 10*3/uL (0.0-0.2); Basophils % 0.4 % (0.0-0.8); Eosinophils % 0.1 % (0.00-10.9); Hematocrit 26.5 VOL% (42.0-52.0); Immature Granulocytes % 1.5 %; Lymphocytes # 1.2 10*3/uL (1.4-4.0); Lymphocytes % 8.8 % (21.2-54.2); Mean Corpuscular Volume 90.4 FL (87-102); Mean Platelet Volume 12.7 FL (9.6-12.0); Neutrophils % 83.2 % (38.7-73.9); Platelet Count 190 T/CUMM (130-400); Red Blood Count 2.93 MC/CUMM (3.8-5.5); Red Cell Distribution Width 15.4 % (9.3-17.3); White Blood Count 13.3 T/CUMM (4-12)
[2020-05-23 05:29] LABS: Phenytoin (Dilantin) 19.2 UG/ML (10-20)
[2020-05-23] MEDS: KETAMINE IV SCH ×2 (06:33→15:00)
[2020-05-23] MEDS: DOPamine 800 MG/250 ML PREMIX IV PRN ×2 (07:14→23:06)
[2020-05-23] MEDS: NOREPINEPHRINE 16 MG in SODIUM CHLORIDE 0.9% 234 ML IV PRN ×2 (07:14→23:21)
[2020-05-23] MEDS: MIDAZOLAM 100 MG in SODIUM CHLORIDE 0.9% 80 ML IV PRN (08:00)
[2020-05-23] MEDS: ASPIRIN CHEW 81 MG TABLET PO SCH (09:28)
[2020-05-23] MEDS: SODIUM BICARBONATE 650 MG TABLET PO SCH ×3 (09:28→20:43)
[2020-05-23] MEDS: DEXAMETHASONE 4 MG/1 ML VIAL IV SCH ×2 (09:29→20:42)
[2020-05-23] MEDS: PANTOPRAZOLE 40 MG VIAL IV SCH (09:29)
[2020-05-23] MEDS ORDERED: POLYETHYLENE GLYCOL POWDER 17 GM PACK PO ONE (09:30)
[2020-05-23] MEDS ORDERED: VANCOMYCIN INJ 750 MG in SODIUM CHLORIDE 0.9% 250 ML IV ONE (17:00)
[2020-05-23] MEDS: ALBUMIN 25% 25 GM in PREMIX 1 EACH IV SCH (23:50)
[2020-05-24] MEDS: HEPARIN 5,000 UNIT/1 ML VIAL SUBCUT SCH ×2 (00:13→11:55)
[2020-05-24] MEDS: SODIUM CHLORIDE 0.9% IV SCH ×6 (00:16→17:58)
[2020-05-24] MEDS: KETAMINE IV SCH ×3 (00:16→16:05)
[2020-05-24] MEDS: VALPROIC ACID IV SCH ×3 (01:32→17:58)
[2020-05-24] MEDS: PIPERACILLIN/TAZOBACTAM 3,375 MG in SODIUM CHLORIDE 0.9% 100 ML IV SCH ×2 (01:33→12:00)
[2020-05-24] MEDS: PHENYTOIN 100 MG/2 ML VIAL IV SCH ×4 (03:40→20:37)
[2020-05-24 03:58] LABS: ABG Base Excess -11.4 MMOL/L (-2.5-2.5); ABG HCO3 15.4 MMOL/L (20-26); ABG Oxygen Saturation 96.3 % (95-100); ABG PCO2 33.4 MM HG (35-48); ABG PH 7.257 (7.35-7.45); ABG PO2 93.8 MM HG (80-95); ABG TCO2 14.1 MMOL/L (23-27)
[2020-05-24 04:37] LABS: Phenytoin (Dilantin) 18.1 UG/ML (10-20)
[2020-05-24] MEDS: ALBUMIN 25% 25 GM in PREMIX 1 EACH IV SCH ×2 (06:53→14:15)
[2020-05-24] MEDS: PHENobarbital 130 MG/1 ML VIAL IV SCH ×3 (06:54→22:20)
[2020-05-24 07:13] LABS: Basophils # 0.1 10*3/uL (0.0-0.2); Basophils % 0.3 % (0.0-0.8); Hematocrit 26.7 VOL% (42.0-52.0); Hemoglobin 8.7 GM/DL (14.0-18.0); Immature Granulocytes % 1.3 %; Immature Granulocytes Absolute 0.24 #; Lymphocytes # 0.7 10*3/uL (1.4-4.0); Lymphocytes % 3.8 % (21.2-54.2); Mean Corpuscular HGB Conc 32.6 GM/DL (32-36); Mean Platelet Volume 13.4 FL (9.6-12.0); Monocytes % 4.5 % (1.7-12.7); NRBC # 0.02 10*3/uL; Neutrophils % 90.1 % (38.7-73.9); Platelet Count 157 T/CUMM (130-400); Red Blood Count 2.81 MC/CUMM (3.8-5.5); Red Cell Distribution Width 15.8 % (9.3-17.3); White Blood Count 18.5 T/CUMM (4-12)
[2020-05-24 07:17] LABS: Albumin 1.5 G/DL (3.4-5.0); Bilirubin,Total 0.6 MG/DL (0.2-1.0); Calcium 7.2 MG/DL (8.5-10.1); Potassium 4.1 MMOL/L (3.5-5.1); Total Protein 5.1 G/DL (6.4-8.3)
[2020-05-24 07:37] LABS: Band Neutrophils 2 % (0-10); Eosinophils 1 % (0-10); Lymphocytes 4 % (20-55); Platelet Estimate Adequate; Segmented Neutrophils 86 % (50-85); Total Cells Counted 100
[2020-05-24 07:38] LABS: Hypochromasia 1+; Microcytosis 1+
[2020-05-24] MEDS ORDERED: ALBUMIN 25% 25 GM in PREMIX 1 EACH IV ONE (08:00)
[2020-05-24] MEDS ORDERED: SODIUM BICARBONATE 50 MEQ/50 ML VIAL IV ONE (08:08)
[2020-05-24] MEDS ORDERED: FUROSEMIDE 40 MG/4 ML VIAL IV ONE (08:10)
[2020-05-24] MEDS: POLYETHYLENE GLYCOL POWDER 17 GM PACK PO SCH (08:45)
[2020-05-24] MEDS: DEXAMETHASONE 4 MG/1 ML VIAL IV SCH ×2 (08:45→20:34)
[2020-05-24] MEDS: PANTOPRAZOLE 40 MG VIAL IV SCH (08:45)
[2020-05-24] MEDS: ASPIRIN CHEW 81 MG TABLET PO SCH (08:45)
[2020-05-24] MEDS: SODIUM BICARBONATE 650 MG TABLET PO SCH ×3 (08:45→20:44)
[2020-05-24] MEDS: MICAFUNGIN 100 MG in SODIUM CHLORIDE 0.9% 100 ML IV SCH (09:30)
[2020-05-24] MEDS ORDERED: VANCOMYCIN INJ 500 MG in SODIUM CHLORIDE 0.9% 100 ML IV PRN (10:00)
[2020-05-24] MEDS: DOPamine 800 MG/250 ML PREMIX IV PRN (13:35)
[2020-05-24] MEDS: NOREPINEPHRINE 16 MG in SODIUM CHLORIDE 0.9% 234 ML IV PRN (14:10)
[2020-05-24] MEDS ORDERED: VANCOMYCIN INJ 500 MG in SODIUM CHLORIDE 0.9% 100 ML IV ONE (17:00)
[2020-05-25] MEDS: HEPARIN 5,000 UNIT/1 ML VIAL SUBCUT SCH ×2 (00:13→11:36)
[2020-05-25] MEDS: KETAMINE IV SCH ×3 (00:29→17:55)
[2020-05-25] MEDS: SODIUM CHLORIDE 0.9% IV SCH ×6 (00:29→17:55)
[2020-05-25] MEDS: PIPERACILLIN/TAZOBACTAM 3,375 MG in SODIUM CHLORIDE 0.9% 100 ML IV SCH ×2 (00:46→12:12)
[2020-05-25] MEDS: VALPROIC ACID IV SCH ×3 (01:29→17:35)
[2020-05-25] MEDS: PHENYTOIN 100 MG/2 ML VIAL IV SCH ×4 (03:58→18:17)
[2020-05-25 04:50] LABS: Basophils % 0.2 % (0.0-0.8); Eosinophils % 0.2 % (0.00-10.9); Hematocrit 20.2 VOL% (42.0-52.0); Immature Granulocytes % 1.3 %; Immature Granulocytes Absolute 0.22 #; Lymphocytes # 0.7 10*3/uL (1.4-4.0); Lymphocytes % 3.9 % (21.2-54.2); Mean Corpuscular HGB Conc 33.2 GM/DL (32-36); Mean Corpuscular Volume 92.7 FL (87-102); Mean Platelet Volume 13.4 FL (9.6-12.0); Monocytes % 3.9 % (1.7-12.7); NRBC # 0.06 10*3/uL; Neutrophils % 90.5 % (38.7-73.9); Platelet Count 134 T/CUMM (130-400); Red Cell Distribution Width 15.6 % (9.3-17.3); White Blood Count 17.3 T/CUMM (4-12)
[2020-05-25 04:52] LABS: ABG Base Excess -4.3 MMOL/L (-2.5-2.5); ABG HCO3 20.5 MMOL/L (20-26); ABG Oxygen Saturation 98.6 % (95-100); ABG PCO2 35.7 MM HG (35-48); ABG PH 7.376 (7.35-7.45); ABG PO2 157.1 MM HG (80-95); ABG TCO2 21.6 MMOL/L (23-27)
[2020-05-25 05:08] LABS: Red Blood Count 2.18 MC/CUMM (3.8-5.5)
[2020-05-25 05:09] LABS: Hemoglobin 6.7 GM/DL (14.0-18.0)
[2020-05-25 05:30] LABS: Phenytoin (Dilantin) 22.9 UG/ML (10-20)
[2020-05-25 05:31] LABS: Albumin 1.6 G/DL (3.4-5.0); Bilirubin,Total 0.8 MG/DL (0.2-1.0); Calcium 7.1 MG/DL (8.5-10.1); Osmolality,Calculated 299.3 MOS/KG (273-304); Potassium 3.3 MMOL/L (3.5-5.1); Total Protein 4.8 G/DL (6.4-8.9)
[2020-05-25] MEDS ORDERED: SODIUM CHLORIDE 0.9% 1,000 ML IV PRN ×2 (05:34→07:57)
[2020-05-25 05:43] LABS: Band Neutrophils 12 % (0-10); Eosinophils 1 % (0-10); Hypochromasia 1+; Lymphocytes 3 % (20-55); Metamyelocytes 2 %; Segmented Neutrophils 75 % (50-85); Total Cells Counted 100
[2020-05-25 05:44] LABS: Giant Platelets Few; Microcytosis 2+; Ovalocytes Slight; Platelet Estimate Adequate
[2020-05-25] MEDS: PHENobarbital 130 MG/1 ML VIAL IV SCH ×3 (06:09→22:38)
[2020-05-25] MEDS: NOREPINEPHRINE 16 MG in SODIUM CHLORIDE 0.9% 234 ML IV PRN (06:15)
[2020-05-25] MEDS ORDERED: POTASSIUM CHLORIDE RIDER 10 MEQ in PREMIX 1 EACH IV PRN (07:16)
[2020-05-25] MEDS: POTASSIUM CHLORIDE RIDER 20 MEQ in PREMIX 1 EACH IV PRN ×3 (08:16→16:19)
[2020-05-25] MEDS: SODIUM BICARBONATE 650 MG TABLET PO SCH ×2 (09:39→20:17)
[2020-05-25] MEDS: ASPIRIN CHEW 81 MG TABLET PO SCH (09:39)
[2020-05-25] MEDS: DEXAMETHASONE 4 MG/1 ML VIAL IV SCH ×2 (09:39→20:16)
[2020-05-25] MEDS: POLYETHYLENE GLYCOL POWDER 17 GM PACK PO SCH (09:39)
[2020-05-25] MEDS: PANTOPRAZOLE 40 MG VIAL IV SCH (09:44)
[2020-05-25] MEDS: MICAFUNGIN 100 MG in SODIUM CHLORIDE 0.9% 100 ML IV SCH (09:49)
[2020-05-25] MEDS: ALBUMIN 25% 25 GM in PREMIX 1 EACH IV SCH ×2 (13:00→20:16)
[2020-05-26] MEDS: VALPROIC ACID IV SCH ×3 (00:10→16:47)
[2020-05-26] MEDS: SODIUM CHLORIDE 0.9% IV SCH ×7 (00:10→18:10)
[2020-05-26] MEDS: HEPARIN 5,000 UNIT/1 ML VIAL SUBCUT SCH ×2 (00:32→13:45)
[2020-05-26] MEDS: PIPERACILLIN/TAZOBACTAM 3,375 MG in SODIUM CHLORIDE 0.9% 100 ML IV SCH (00:37)
[2020-05-26] MEDS: KETAMINE IV SCH ×4 (03:01→18:10)
[2020-05-26] MEDS: PHENYTOIN 100 MG/2 ML VIAL IV SCH ×3 (03:17→19:07)
[2020-05-26 04:13] LABS: ABG Base Excess -8.6 MMOL/L (-2.5-2.5); ABG HCO3 17.5 MMOL/L (20-26); ABG Oxygen Saturation 96.2 % (95-100); ABG PCO2 33.3 MM HG (35-48); ABG PH 7.313 (7.35-7.45); ABG PO2 90.8 MM HG (80-95); ABG TCO2 15.7 MMOL/L (23-27)
[2020-05-26 04:22] LABS: Basophils % 0.2 % (0.0-0.8); Eosinophils % 0.1 % (0.00-10.9); Hematocrit 25.5 VOL% (42.0-52.0); Immature Granulocytes % 1.1 %; Immature Granulocytes Absolute 0.19 #; Lymphocytes # 0.7 10*3/uL (1.4-4.0); Lymphocytes % 3.8 % (21.2-54.2); Mean Corpuscular HGB Conc 33.3 GM/DL (32-36); Mean Corpuscular Volume 90.4 FL (87-102); Monocytes % 3.3 % (1.7-12.7); NRBC # 0.12 10*3/uL; Neutrophils % 91.5 % (38.7-73.9); Platelet Count 127 T/CUMM (130-400); Red Blood Count 2.82 MC/CUMM (3.8-5.5); Red Cell Distribution Width 16.2 % (9.3-17.3); White Blood Count 17.5 T/CUMM (4-12)
[2020-05-26 04:24] LABS: Hemoglobin 8.5 GM/DL (14.0-18.0)
[2020-05-26] MEDS: ALBUMIN 25% 25 GM in PREMIX 1 EACH IV SCH ×2 (04:30→13:45)
[2020-05-26 04:42] LABS: Band Neutrophils 15 % (0-10); Lymphocytes 4 % (20-55); Segmented Neutrophils 79 % (50-85); Total Cells Counted 100
[2020-05-26 04:43] LABS: Anisocytosis 1+; Hypochromasia 1+; Microcytosis 1+; Ovalocytes Few
[2020-05-26 04:44] LABS: Platelet Estimate Adequate
[2020-05-26 04:45] LABS: Albumin 1.9 G/DL (3.4-5.0); Bilirubin,Total 1.2 MG/DL (0.2-1.0); Calcium 7.1 MG/DL (8.5-10.1); Osmolality,Calculated 307.3 MOS/KG (273-304); Potassium 3.6 MMOL/L (3.5-5.1); Total Protein 5.2 G/DL (5.0-7.5)
[2020-05-26 04:50] LABS: Giant Platelets Few
[2020-05-26 05:08] LABS: Phenytoin (Dilantin) 20.6 UG/ML (10-20)
[2020-05-26] MEDS: NOREPINEPHRINE 16 MG in SODIUM CHLORIDE 0.9% 234 ML IV PRN (05:23)
[2020-05-26] MEDS: PHENobarbital 130 MG/1 ML VIAL IV SCH ×3 (06:08→23:58)
[2020-05-26] MEDS: ASPIRIN CHEW 81 MG TABLET PO SCH (10:19)
[2020-05-26] MEDS: SODIUM BICARBONATE 650 MG TABLET PO SCH ×2 (10:19→20:24)
[2020-05-26] MEDS: POLYETHYLENE GLYCOL POWDER 17 GM PACK PO SCH (10:19)
[2020-05-26] MEDS: PANTOPRAZOLE 40 MG VIAL IV SCH (10:20)
[2020-05-26] MEDS: DEXAMETHASONE 4 MG/1 ML VIAL IV SCH ×2 (10:20→20:18)
[2020-05-26] MEDS: MICAFUNGIN 100 MG in SODIUM CHLORIDE 0.9% 100 ML IV SCH (10:22)
[2020-05-26] MEDS: POTASSIUM CHLORIDE RIDER 20 MEQ in PREMIX 1 EACH IV PRN (10:50)
[2020-05-26] MEDS: TOPIRAMATE 25 MG TABLET PO SCH ×2 (13:45→20:24)
[2020-05-26] MEDS ORDERED: PENTOBARBITAL IV ONE (14:00)
[2020-05-26] MEDS: IN SODIUM CHLORIDE 0.9% IV SCH (16:47)
[2020-05-26] MEDS ORDERED: VANCOMYCIN INJ 500 MG in SODIUM CHLORIDE 0.9% 100 ML IV ONE (21:00)
[2020-05-27] MEDS: VALPROIC ACID IV SCH ×3 (00:57→16:50)
[2020-05-27] MEDS: SODIUM CHLORIDE 0.9% IV SCH ×4 (00:57→16:50)
[2020-05-27] MEDS: HEPARIN 5,000 UNIT/1 ML VIAL SUBCUT SCH ×2 (00:57→14:01)
[2020-05-27] MEDS: KETAMINE IV SCH (01:00)
[2020-05-27] MEDS: PHENYTOIN 100 MG/2 ML VIAL IV SCH ×3 (02:29→18:31)
[2020-05-27] MEDS: IN SODIUM CHLORIDE 0.9% IV SCH ×4 (03:20→17:01)
[2020-05-27] MEDS: ACETAMINOPHEN 325 MG/10.15 ML UDCUP PO PRN ×2 (04:06→10:24)
[2020-05-27 04:37] LABS: Basophils % 0.1 % (0.0-0.8); Eosinophils # 0.1 10*3/uL (0.0-0.87); Eosinophils % 0.3 % (0.00-10.9); Hematocrit 24.2 VOL% (42.0-52.0); Hemoglobin 8.1 GM/DL (14.0-18.0); Immature Granulocytes % 1.3 %; Immature Granulocytes Absolute 0.26 #; Lymphocytes # 0.5 10*3/uL (1.4-4.0); Lymphocytes % 2.7 % (21.2-54.2); Mean Corpuscular HGB Conc 33.5 GM/DL (32-36); Mean Platelet Volume 14.2 FL (9.6-12.0); Monocytes % 2.6 % (1.7-12.7); NRBC # 0.15 10*3/uL; Platelet Count 117 T/CUMM (130-400); Red Blood Count 2.69 MC/CUMM (3.8-5.5); Red Cell Distribution Width 16.6 % (9.3-17.3); White Blood Count 20.3 T/CUMM (4-12)
[2020-05-27 04:52] LABS: Calcium 7.5 MG/DL (8.5-10.1); Osmolality,Calculated 297.7 MOS/KG (273-304); Potassium 3.3 MMOL/L (3.5-5.1)
[2020-05-27 04:53] LABS: ABG Base Excess -6.2 MMOL/L (-2.5-2.5); ABG HCO3 19.3 MMOL/L (20-26); ABG Oxygen Saturation 93.9 % (95-100); ABG PCO2 34.1 MM HG (35-48); ABG PH 7.347 (7.35-7.45); ABG TCO2 17.1 MMOL/L (23-27)
[2020-05-27 04:55] LABS: Albumin 1.9 G/DL (3.4-5.0); Bilirubin,Total 1.3 MG/DL (0.2-1.0); Calcium 7.4 MG/DL (8.5-10.1); Osmolality,Calculated 295.8 MOS/KG (273-304); Phenytoin (Dilantin) 20.7 UG/ML (10-20); Potassium 3.3 MMOL/L (3.5-5.1); Total Protein 4.9 G/DL (5.0-7.5)
[2020-05-27 04:58] LABS: Band Neutrophils 9 % (0-10); Hypochromasia 1+; Lymphocytes 2 % (20-55); Microcytosis 1+; Nucleated Red Blood Cells 2 (0-5); Ovalocytes Slight; Platelet Estimate Decreased; Segmented Neutrophils 88 % (50-85); Total Cells Counted 100
[2020-05-27] MEDS: POTASSIUM CHLORIDE RIDER 20 MEQ in PREMIX 1 EACH IV PRN ×2 (05:20→10:24)
[2020-05-27] MEDS: PHENobarbital 130 MG/1 ML VIAL IV SCH ×3 (06:16→23:58)
[2020-05-27 08:26] LABS: Phenytoin (Dilantin) 21.3 UG/ML (10-20)
[2020-05-27] MEDS: NOREPINEPHRINE 16 MG in SODIUM CHLORIDE 0.9% 234 ML IV PRN (10:00)
[2020-05-27] MEDS: PANTOPRAZOLE 40 MG VIAL IV SCH (10:16)
[2020-05-27] MEDS: DEXAMETHASONE 4 MG/1 ML VIAL IV SCH ×2 (10:20→20:11)
[2020-05-27] MEDS: ALBUMIN 25% 25 GM in PREMIX 1 EACH IV SCH ×2 (10:24→16:48)
[2020-05-27] MEDS: ASPIRIN CHEW 81 MG TABLET PO SCH (10:24)
[2020-05-27] MEDS: TOPIRAMATE 25 MG TABLET PO SCH ×2 (10:24→20:13)
[2020-05-27] MEDS: SODIUM BICARBONATE 650 MG TABLET PO SCH ×2 (10:24→20:13)
[2020-05-27] MEDS: MICAFUNGIN 100 MG in SODIUM CHLORIDE 0.9% 100 ML IV SCH (10:24)
[2020-05-27] MEDS: POLYETHYLENE GLYCOL POWDER 17 GM PACK PO SCH (11:19)
[2020-05-27] MEDS ORDERED: metroNIDAZOLE 250 MG TABLET PO SCH (12:00)
[2020-05-27] MEDS: metroNIDAZOLE 500 MG TABLET NG SCH ×2 (14:01→18:36)
[2020-05-27] MEDS ORDERED: POTASSIUM CHLORIDE 20 MEQ/15 ML UDCUP PO ONE (14:52)
[2020-05-28] MEDS: ALBUMIN 25% 25 GM in PREMIX 1 EACH IV SCH ×3 (00:11→15:13)
[2020-05-28] MEDS: metroNIDAZOLE 500 MG TABLET NG SCH ×4 (00:21→18:25)
[2020-05-28] MEDS: HEPARIN 5,000 UNIT/1 ML VIAL SUBCUT SCH ×2 (00:25→14:28)
[2020-05-28 00:29] LABS: ABG Base Excess -13.2 MMOL/L (-2.5-2.5); ABG HCO3 13.9 MMOL/L (20-26); ABG Oxygen Saturation 83.7 % (95-100); ABG PCO2 47.8 MM HG (35-48); ABG PO2 64.4 MM HG (80-95); ABG TCO2 15.2 MMOL/L (23-27)
[2020-05-28 00:30] LABS: ABG PH 7.124 (7.35-7.45)
[2020-05-28] MEDS ORDERED: SODIUM BICARBONATE 50 MEQ/50 ML VIAL IV ONE ×2 (00:33→07:48)
[2020-05-28] MEDS: SODIUM CHLORIDE 0.9% IV SCH ×3 (01:07→16:30)
[2020-05-28] MEDS: VALPROIC ACID IV SCH ×3 (01:07→16:30)
[2020-05-28] MEDS: NOREPINEPHRINE 16 MG in SODIUM CHLORIDE 0.9% 234 ML IV PRN ×2 (02:16→17:02)
[2020-05-28] MEDS: PHENYTOIN 100 MG/2 ML VIAL IV SCH ×2 (03:11→15:05)
[2020-05-28 03:58] LABS: Basophils # 0.1 10*3/uL (0.0-0.2); Basophils % 0.2 % (0.0-0.8); Eosinophils % 0.2 % (0.00-10.9); Hematocrit 25.2 VOL% (42.0-52.0); Hemoglobin 8.3 GM/DL (14.0-18.0); Immature Granulocytes % 1.7 %; Immature Granulocytes Absolute 0.35 #; Lymphocytes # 0.4 10*3/uL (1.4-4.0); Lymphocytes % 2.1 % (21.2-54.2); Mean Corpuscular HGB Conc 32.9 GM/DL (32-36); Mean Platelet Volume 14.8 FL (9.6-12.0); Monocytes % 1.9 % (1.7-12.7); NRBC # 0.21 10*3/uL; Neutrophils % 93.9 % (38.7-73.9); Platelet Count 120 T/CUMM (130-400); Red Blood Count 2.74 MC/CUMM (3.8-5.5); Red Cell Distribution Width 16.8 % (9.3-17.3); White Blood Count 20.6 T/CUMM (4-12)
[2020-05-28 03:59] LABS: ABG Base Excess -10.6 MMOL/L (-2.5-2.5); ABG HCO3 15.9 MMOL/L (20-26); ABG Oxygen Saturation 97.7 % (95-100); ABG PCO2 36.2 MM HG (35-48); ABG PH 7.249 (7.35-7.45)
[2020-05-28 04:23] LABS: Band Neutrophils 4 % (0-10); Hypochromasia Slight; Lymphocytes 4 % (20-55); Metamyelocytes 2 %; Nucleated Red Blood Cells 1 (0-5); Platelet Estimate Normal; Segmented Neutrophils 88 % (50-85); Total Cells Counted 100
[2020-05-28 04:29] LABS: Calcium 7.2 MG/DL (8.5-10.1); Osmolality,Calculated 305.7 MOS/KG (273-304); Potassium 4.2 MMOL/L (3.5-5.1)
[2020-05-28 04:36] LABS: Phenytoin (Dilantin) 26.1 UG/ML (10-20)
[2020-05-28 04:42] LABS: Ferritin 881.7 ng/ml (26-388)
[2020-05-28] MEDS: IN SODIUM CHLORIDE 0.9% IV SCH ×3 (05:08→18:25)
[2020-05-28 06:00] VITALS: BP 98/45
[2020-05-28] MEDS: PHENobarbital 130 MG/1 ML VIAL IV SCH ×3 (06:18→23:48)
[2020-05-28] MEDS: PANTOPRAZOLE 40 MG VIAL IV SCH (09:46)
[2020-05-28] MEDS: ASPIRIN CHEW 81 MG TABLET PO SCH (09:46)
[2020-05-28] MEDS: SODIUM BICARBONATE 650 MG TABLET PO SCH ×2 (09:46→20:10)
[2020-05-28] MEDS: MICAFUNGIN 100 MG in SODIUM CHLORIDE 0.9% 100 ML IV SCH (09:47)
[2020-05-28] MEDS: DEXAMETHASONE 4 MG/1 ML VIAL IV SCH ×2 (09:48→20:09)
[2020-05-28] MEDS: TOPIRAMATE 25 MG TABLET PO SCH ×2 (09:49→20:10)
[2020-05-28] MEDS: LINEZOLID INJ 600 MG in PREMIX 1 EACH IV SCH ×2 (12:03→22:01)
[2020-05-28 18:48] LABS: Calcium 6.8 MG/DL (8.5-10.1); Osmolality,Calculated 312.3 MOS/KG (273-304); Potassium 4.1 MMOL/L (3.5-5.1)
[2020-05-29] MEDS: SODIUM CHLORIDE 0.9% IV SCH ×3 (00:12→17:00)
[2020-05-29] MEDS: metroNIDAZOLE 500 MG TABLET NG SCH ×2 (00:12→05:36)
[2020-05-29] MEDS: VALPROIC ACID IV SCH ×3 (00:12→17:00)
[2020-05-29] MEDS: ALBUMIN 25% 25 GM in PREMIX 1 EACH IV SCH (00:40)
[2020-05-29] MEDS: HEPARIN 5,000 UNIT/1 ML VIAL SUBCUT SCH ×3 (00:40→23:43)
[2020-05-29] MEDS: PHENYTOIN 100 MG/2 ML VIAL IV SCH ×2 (02:01→15:07)
[2020-05-29 04:08] LABS: ABG Base Excess -10.8 MMOL/L (-2.5-2.5); ABG Oxygen Saturation 93.6 % (95-100); ABG PCO2 39.4 MM HG (35-48); ABG PH 7.227 (7.35-7.45); ABG PO2 82.5 MM HG (80-95); ABG TCO2 17.2 MMOL/L (23-27)
[2020-05-29 04:15] LABS: Basophils % 0.2 % (0.0-0.8); Eosinophils # 0.1 10*3/uL (0.0-0.87); Eosinophils % 0.3 % (0.00-10.9); Hematocrit 24.5 VOL% (42.0-52.0); Hemoglobin 8.1 GM/DL (14.0-18.0); Immature Granulocytes % 1.7 %; Immature Granulocytes Absolute 0.33 #; Lymphocytes # 0.6 10*3/uL (1.4-4.0); Mean Corpuscular HGB Conc 33.1 GM/DL (32-36); Mean Corpuscular Volume 90.7 FL (87-102); Monocytes % 1.5 % (1.7-12.7); NRBC # 0.29 10*3/uL; Neutrophils % 93.3 % (38.7-73.9); Platelet Count 120 T/CUMM (130-400); Red Cell Distribution Width 16.9 % (9.3-17.3); White Blood Count 19.9 T/CUMM (4-12)
[2020-05-29 04:37] LABS: Band Neutrophils 13 % (0-10); Hypochromasia 1+; Lymphocytes 1 % (20-55); Metamyelocytes 3 %; Nucleated Red Blood Cells 2 (0-5); Segmented Neutrophils 82 % (50-85); Total Cells Counted 100
[2020-05-29 04:38] LABS: Microcytosis 1+; Ovalocytes Slight; Platelet Estimate Adequate; Target Cells Slight
[2020-05-29 04:41] LABS: Phenytoin (Dilantin) 21.8 UG/ML (10-20)
[2020-05-29 04:44] LABS: Albumin 2.6 G/DL (3.4-5.0); Bilirubin,Total 2.6 MG/DL (0.2-1.0); Calcium 7.1 MG/DL (8.5-10.1); Osmolality,Calculated 313.4 MOS/KG (273-304); Total Protein 5.2 G/DL (5.0-7.5)
[2020-05-29] MEDS ORDERED: GLUCAGON 1 MG VIAL IM PRN (05:32)
[2020-05-29] MEDS ORDERED: DEXTROSE 50% 25 GM/50 ML VIAL IV PRN (05:32)
[2020-05-29] MEDS: NOREPINEPHRINE 16 MG in SODIUM CHLORIDE 0.9% 234 ML IV PRN ×2 (06:36→17:22)
[2020-05-29] MEDS: INSULIN LISPRO 100 UNIT/ML SUBCUT SCH ×3 (06:37→18:08)
[2020-05-29] MEDS: PHENobarbital 130 MG/1 ML VIAL IV SCH ×2 (07:00→18:08)
[2020-05-29] MEDS: IN SODIUM CHLORIDE 0.9% IV SCH ×2 (09:15→22:34)
[2020-05-29] MEDS: SODIUM BICARBONATE 650 MG TABLET PO SCH ×2 (09:30→20:02)
[2020-05-29] MEDS: TOPIRAMATE 25 MG TABLET PO SCH ×2 (09:30→20:02)
[2020-05-29] MEDS: ASPIRIN CHEW 81 MG TABLET PO SCH (09:30)
[2020-05-29] MEDS: DEXAMETHASONE 4 MG/1 ML VIAL IV SCH ×2 (09:31→20:03)
[2020-05-29] MEDS: PANTOPRAZOLE 40 MG VIAL IV SCH (09:33)
[2020-05-29] MEDS: LINEZOLID INJ 600 MG in PREMIX 1 EACH IV SCH ×2 (11:02→22:01)
[2020-05-29] MEDS: MICAFUNGIN 100 MG in SODIUM CHLORIDE 0.9% 100 ML IV SCH (11:21)
[2020-05-29] MEDS ORDERED: VANCOMYCIN INJ 500 MG in SODIUM CHLORIDE 0.9% 100 ML IV PRN (11:33)
[2020-05-29] MEDS: CEFTAROLINE 200 MG in SODIUM CHLORIDE 0.9% 100 ML IV SCH (14:05)
[2020-05-29] MEDS ORDERED: VANCOMYCIN INJ 1,250 MG in SODIUM CHLORIDE 0.9% 250 ML IV ONE (15:00)
[2020-05-29] MEDS ORDERED: cloNIDine 0.1 MG TABLET PO PRN (16:18)
[2020-05-29] MEDS ORDERED: amLODIPine 10 MG TABLET PO SCH (16:30)
[2020-05-30] MEDS: INSULIN LISPRO 100 UNIT/ML SUBCUT SCH ×4 (00:15→17:40)
[2020-05-30] MEDS: VALPROIC ACID IV SCH ×3 (00:40→16:38)
[2020-05-30] MEDS: SODIUM CHLORIDE 0.9% IV SCH ×3 (00:40→16:38)
[2020-05-30] MEDS: CEFTAROLINE 200 MG in SODIUM CHLORIDE 0.9% 100 ML IV SCH ×2 (01:39→14:32)
[2020-05-30] MEDS: PHENYTOIN 100 MG/2 ML VIAL IV SCH ×2 (02:35→16:09)
[2020-05-30 03:51] LABS: ABG Base Excess -7.9 MMOL/L (-2.5-2.5); ABG Oxygen Saturation 99.6 % (95-100); ABG PCO2 37.9 MM HG (35-48); ABG PH 7.287 (7.35-7.45); ABG TCO2 16.9 MMOL/L (23-27)
[2020-05-30 03:55] LABS: Basophils % 0.1 % (0.0-0.8); Eosinophils # 0.1 10*3/uL (0.0-0.87); Eosinophils % 0.4 % (0.00-10.9); Hemoglobin 8.5 GM/DL (14.0-18.0); Immature Granulocytes % 1.6 %; Immature Granulocytes Absolute 0.26 #; Lymphocytes # 0.6 10*3/uL (1.4-4.0); Lymphocytes % 3.4 % (21.2-54.2); Mean Corpuscular Volume 87.4 FL (87-102); NRBC # 0.25 10*3/uL; Neutrophils % 92.5 % (38.7-73.9); Platelet Count 94 T/CUMM (130-400); Red Blood Count 2.86 MC/CUMM (3.8-5.5); Red Cell Distribution Width 16.2 % (9.3-17.3)
[2020-05-30 04:20] LABS: Band Neutrophils 16 % (0-10); Lymphocytes 2 % (20-55); Metamyelocytes 2 %; Nucleated Red Blood Cells 2 (0-5); Segmented Neutrophils 78 % (50-85); Total Cells Counted 100
[2020-05-30 04:21] LABS: Acanthocytes Few; Burr Cells Slight; Hypochromasia Slight; Microcytosis 1+; Target Cells Slight
[2020-05-30 04:22] LABS: Platelet Estimate Decreased
[2020-05-30 04:23] LABS: Bilirubin,Total 3.3 MG/DL (0.2-1.0); Total Protein 4.9 G/DL (5.0-7.5)
[2020-05-30 04:56] LABS: Calcium 7.5 MG/DL (8.5-10.1); Osmolality,Calculated 301.5 MOS/KG (273-304); Potassium 3.7 MMOL/L (3.5-5.1)
[2020-05-30] MEDS: PHENobarbital 130 MG/1 ML VIAL IV SCH ×2 (05:14→17:47)
[2020-05-30] MEDS: TOPIRAMATE 25 MG TABLET PO SCH ×2 (08:45→20:31)
[2020-05-30] MEDS: calcitrioL 0.25 MCG CAPSULE PO SCH (08:45)
[2020-05-30] MEDS: ASPIRIN CHEW 81 MG TABLET PO SCH (08:45)
[2020-05-30] MEDS: SODIUM BICARBONATE 650 MG TABLET PO SCH ×2 (08:46→20:31)
[2020-05-30] MEDS: DEXAMETHASONE 4 MG/1 ML VIAL IV SCH (08:47)
[2020-05-30] MEDS: PANTOPRAZOLE 40 MG VIAL IV SCH (08:49)
[2020-05-30] MEDS: ALBUMIN 25% 25 GM in PREMIX 1 EACH IV SCH ×2 (10:02→17:50)
[2020-05-30] MEDS: MICAFUNGIN 100 MG in SODIUM CHLORIDE 0.9% 100 ML IV SCH (10:56)
[2020-05-30] MEDS: HEPARIN 5,000 UNIT/1 ML VIAL SUBCUT SCH (11:53)
[2020-05-30] MEDS: NOREPINEPHRINE 16 MG in SODIUM CHLORIDE 0.9% 234 ML IV PRN (12:12)
[2020-05-30] MEDS: IN SODIUM CHLORIDE 0.9% IV SCH (13:58)
[2020-05-30] MEDS ORDERED: PHENYLEPHRINE DRIP 40 MG/250 ML PREMIX IV ONE (23:58)
[2020-05-31] MEDS ORDERED: PHENYLEPHRINE DRIP 40 MG/250 ML PREMIX IV PRN
[2020-05-31] MEDS: HEPARIN 5,000 UNIT/1 ML VIAL SUBCUT SCH ×2 (00:25→11:33)
[2020-05-31] MEDS: INSULIN LISPRO 100 UNIT/ML SUBCUT SCH ×4 (00:26→17:25)
[2020-05-31] MEDS: IN SODIUM CHLORIDE 0.9% IV SCH ×2 (00:37→04:46)
[2020-05-31] MEDS: SODIUM CHLORIDE 0.9% IV SCH ×3 (00:56→17:10)
[2020-05-31] MEDS: VALPROIC ACID IV SCH ×3 (00:56→17:10)
[2020-05-31] MEDS: ALBUMIN 25% 25 GM in PREMIX 1 EACH IV SCH ×2 (02:01→08:17)
[2020-05-31] MEDS: NOREPINEPHRINE 16 MG in SODIUM CHLORIDE 0.9% 234 ML IV PRN ×3 (02:16→18:40)
[2020-05-31] MEDS: PHENYTOIN 100 MG/2 ML VIAL IV SCH ×2 (03:01→15:09)
[2020-05-31] MEDS: CEFTAROLINE 200 MG in SODIUM CHLORIDE 0.9% 100 ML IV SCH ×2 (03:04→13:50)
[2020-05-31 03:45] LABS: ABG Base Excess -9.9 MMOL/L (-2.5-2.5); ABG HCO3 16.4 MMOL/L (20-26); ABG Oxygen Saturation 92.6 % (95-100); ABG PCO2 42.4 MM HG (35-48); ABG PO2 76.9 MM HG (80-95); ABG TCO2 16.4 MMOL/L (23-27)
[2020-05-31 03:47] LABS: Basophils % 0.2 % (0.0-0.8); Eosinophils # 0.1 10*3/uL (0.0-0.87); Eosinophils % 0.6 % (0.00-10.9); Hematocrit 24.1 VOL% (42.0-52.0); Hemoglobin 8.2 GM/DL (14.0-18.0); Immature Granulocytes % 2.1 %; Immature Granulocytes Absolute 0.25 #; Lymphocytes # 0.6 10*3/uL (1.4-4.0); Lymphocytes % 5.1 % (21.2-54.2); Mean Corpuscular Volume 88.3 FL (87-102); Monocytes % 2.3 % (1.7-12.7); NRBC # 0.19 10*3/uL; Neutrophils % 89.7 % (38.7-73.9); Red Blood Count 2.73 MC/CUMM (3.8-5.5); Red Cell Distribution Width 16.4 % (9.3-17.3); White Blood Count 12.1 T/CUMM (4-12)
[2020-05-31 03:48] LABS: Platelet Count 93 T/CUMM (130-400)
[2020-05-31 04:06] LABS: Albumin 2.5 G/DL (3.4-5.0); Band Neutrophils 9 % (0-10); Bilirubin,Total 5.5 MG/DL (0.2-1.0); Calcium 7.4 MG/DL (8.5-10.1); Eosinophils 1 % (0-10); Lymphocytes 1 % (20-55); Nucleated Red Blood Cells 1 (0-5); Osmolality,Calculated 305.4 MOS/KG (273-304); Platelet Estimate Decreased; Potassium 3.9 MMOL/L (3.5-5.1); Segmented Neutrophils 83 % (50-85); Total Cells Counted 100; Total Protein 4.9 G/DL (5.0-7.5)
[2020-05-31 04:07] LABS: Hypochromasia 1+; Microcytosis 1+
[2020-05-31] MEDS: PHENobarbital 130 MG/1 ML VIAL IV SCH ×2 (05:21→18:00)
[2020-05-31] MEDS: TOPIRAMATE 25 MG TABLET PO SCH (08:14)
[2020-05-31] MEDS: calcitrioL 0.25 MCG CAPSULE PO SCH (08:14)
[2020-05-31] MEDS: ASPIRIN CHEW 81 MG TABLET PO SCH (08:14)
[2020-05-31] MEDS: SODIUM BICARBONATE 650 MG TABLET PO SCH ×2 (08:14→21:17)
[2020-05-31] MEDS: PANTOPRAZOLE 40 MG VIAL IV SCH (08:15)
[2020-05-31] MEDS ORDERED: DEXAMETHASONE 4 MG/1 ML VIAL IV SCH (09:00)
[2020-06-01] MEDS: INSULIN LISPRO 100 UNIT/ML SUBCUT SCH ×2 (00:01→05:11)
[2020-06-01] MEDS: SODIUM CHLORIDE 0.9% IV SCH ×2 (00:52→09:26)
[2020-06-01] MEDS: VALPROIC ACID IV SCH ×2 (00:52→09:26)
[2020-06-01] MEDS: HEPARIN 5,000 UNIT/1 ML VIAL SUBCUT SCH (00:52)
[2020-06-01] MEDS: CEFTAROLINE 200 MG in SODIUM CHLORIDE 0.9% 100 ML IV SCH (02:08)
[2020-06-01] MEDS: NOREPINEPHRINE 16 MG in SODIUM CHLORIDE 0.9% 234 ML IV PRN ×2 (02:09→08:46)
[2020-06-01] MEDS: PHENYTOIN 100 MG/2 ML VIAL IV SCH (02:36)
[2020-06-01 04:28] LABS: ABG Base Excess -14.1 MMOL/L (-2.5-2.5); ABG HCO3 13.3 MMOL/L (20-26); ABG PCO2 36.9 MM HG (35-48); ABG PO2 84.8 MM HG (80-95)
[2020-06-01 04:30] LABS: ABG PH 7.172 (7.35-7.45)
[2020-06-01 04:35] LABS: Basophils % 0.1 % (0.0-0.8); Eosinophils % 0.3 % (0.00-10.9); Hematocrit 24.4 VOL% (42.0-52.0); Hemoglobin 8.2 GM/DL (14.0-18.0); Immature Granulocytes % 1.7 %; Lymphocytes # 0.7 10*3/uL (1.4-4.0); Lymphocytes % 6.1 % (21.2-54.2); Mean Corpuscular HGB Conc 33.6 GM/DL (32-36); Mean Corpuscular Volume 89.1 FL (87-102); Monocytes % 2.6 % (1.7-12.7); NRBC # 0.35 10*3/uL; Neutrophils % 89.2 % (38.7-73.9); Platelet Count 76 T/CUMM (130-400); Red Blood Count 2.74 MC/CUMM (3.8-5.5); Red Cell Distribution Width 16.9 % (9.3-17.3)
[2020-06-01 04:44] LABS: Calcium 6.9 MG/DL (8.5-10.1); Osmolality,Calculated 313.3 MOS/KG (273-304)
[2020-06-01 04:53] LABS: Band Neutrophils 9 % (0-10); Lymphocytes 8 % (20-55); Nucleated Red Blood Cells 1 (0-5); Platelet Estimate Decreased; Segmented Neutrophils 80 % (50-85); Total Cells Counted 100
[2020-06-01 04:54] LABS: Burr Cells Slight; Hypochromasia 1+; Microcytosis 1+; Ovalocytes Slight
[2020-06-01] MEDS: PHENobarbital 130 MG/1 ML VIAL IV SCH (05:11)
[2020-06-01] MEDS ORDERED: LORazepam 2 MG/1 ML VIAL IV PRN (08:40)
[2020-06-01] MEDS ORDERED: LORazepam 2 MG/1 ML VIAL ONE (10:28)
[2020-06-01] MEDS: MORPHINE 4 MG/1 ML VIAL IV PRN ×2 (10:39→10:48)
== END 2020-06-01 10:57 | disposition expired | DRG 207 ==
LOC: SUATTDRO 03:33 → N.CC 03:33
PROVIDERS: ADMIT Internal Medicine; ATTEND Internal Medicine